=== PATIENT | male | born 1990 | race Caucasian/White ===

== ENCOUNTER 2017-09-15 05:59 | Emergency (ER) | payer OTHER, MEDICAID, SELFPAY ==
[2017-09-15 06:01] VITALS: BP 128/85; PULSE 91; RESP 16; TEMP 36.4; O2SAT 100; BMI 28.4
--- NOTE | 2017-09-15 06:34 | CT_ITS ---
STUDY: CT ABDOMEN AND PELVIS WITHOUT CONTRAST REASON FOR EXAM: Male, 27 years old. Acute onset of right flank pain. RADIATION DOSAGE (If Supplied By Facility): CTDIvol = ( 13.55 ) mGy, DLP = ( 647.72 ) mGycm TECHNIQUE: Transaxial images were obtained from the dome of the diaphragm to the symphysis pubis without oral contrast, and without intravenous contrast. Sagittal and coronal images were reconstructed. Individualized dose optimization techniques were used for this CT. COMPARISON: None. FINDINGS: The visualized lung bases are unremarkable. The visualized portions of the heart are within normal limits. Normal liver. Normal gallbladder and extrahepatic biliary system. Normal spleen. Normal pancreas. Normal bilateral adrenal glands. Very minimal dilatation right renal collecting system. No perinephric stranding. The ureter is not dilated. No evidence of obstructing stone. Normal left kidney. Normal visualized stomach. Normal small intestine. Sigmoid colon not well distended limiting evaluation. The appendix is small, visualized axial image 129 and appears normal. Normal abdominal aorta. Normal inferior vena cava. Normal retroperitoneum. No intra-abdominal free air. Normal urinary bladder. Normal visualized prostate gland. Normal abdominal wall. Normal osseous structures. CT/Abdomen/Pelvis without Cont IMPRESSION: No evidence of bowel obstruction. Minimal dilatation right renal collecting system without evidence of obstructing stone. If symptoms persist consider urology consultation. Limited evaluation of the sigmoid colon due to lack of distention. If there is a high clinical suspicion of colitis, and further imaging is warranted, consider delayed images after administration of oral contrast Electronically Signed: Yair Hung MD at 7:41 EDT , Service support ,
--- NOTE | 2017-09-15 06:36 | ED.VISSUMM ---
- ER Visit Summary Date of Service: 09/15/17 Chief Complaint: [] Right-sided flank pain History of Present Illness: The patient is a 27 M who stated that he woke up 3 and half hours ago with right-sided flank pain. Is continuous waxes and wanes stabbing pain. Multiple episodes of emesis. No urinary symptoms. He tried a muscle relaxant but does not think even It down. No history of kidney stones. He does have a history of back spasms but this feels different. Physical Examination: Vital signs reviewed General: Well-nourished well-developed he does appear in pain Head: Normocephalic atraumatic Eyes: Pupils equal round and reactive to light extraocular movements intact ENT: TMs clear no hemotympanum no trauma Neck: Nontender full range of motion Cardiovascular: Regular rate rhythm no murmurs normal S1-S2 Respiratory: No distress clear to auscultation bilaterally chest nontender Abdomen: Soft nontender nondistended normal bowel sounds no masses Back: Nontender no CVA tenderness Extremities: Nontender active range of motion ?4 extremities no trauma Skin: Normal color no trauma Neuro alert oriented cranial nerves II through XII intact normal strength sensation reflexes Test Results: [] Emergency Department Course and Treatment: [] Patient given IV fluids morphine Zofran Toradol. Lab work and CT abdomen pelvis obtained. CBC normal except white count 13.0. Chemistries normal except glucose 116. Urinalysis shows no infection. CT. At this time I feel this is musculoskeletal back pain Treatment Plan: [] Disposition: [] Impression: [] R Sided flank pain Back pain This note was generated with [employer] dictation software. It may contain incorrect words, spelling, and punctuation that were not noted in review of the chart prior to signing ED Disposition - Plan for ED Patient: Disposition: Home or Assisted Living Chief Complaint: Flank Pain Instructions: ED Spasm Back No Trauma Prescriptions: Ibuprofen 800 mg PO TID #30 tab Referrals: Joseph Campos MD [Primary Care Provider] -
[2017-09-15 06:48] LABS: Anion Gap 10 (5-15); BUN 18 mg/dL (7-18); BUN/Creat Ratio 15.7 RATIO (10-20); Calcium,Total 9.2 mg/dL (8.5-10.1); Chloride 105 mmol/L (98-107); Creatinine, Serum 1.15 mg/dL (0.70-1.30); EST Glomerular Filtration Rate 80 mL/min (>60); Est Glom Filt Rate - Afr Amer 97 mL/min (>60); Estimated Creatinine Clearance 98.74 ml/min; Glucose 116 mg/dL (74-106); Potassium 3.6 mmol/L (3.5-5.1); Sodium Level 143 mmol/L (136-145)
[2017-09-15] MEDS: Ondansetron 4 MG/2 ML Vial IV (06:48)
[2017-09-15] MEDS: 0.9% Normal Saline 1,000 ML 1000 ML IV (06:48)
[2017-09-15] MEDS: Ketorolac 30 MG/ML Syringe IV (06:49)
[2017-09-15] MEDS: morphine 8 MG/ML Syringe IV (06:51)
[2017-09-15 06:59] LABS: Absolute Lymphocyte Count 2.64 X10^3/ul (0.83-4.51); Absolute Neutrophil Count 9.5 X10^3/uL (2.0-7.7); Basophil# 0.03 X10^3/uL; Basophil% 0.2 % (0-1); Hematocrit 44.2 % (40-54); Hemoglobin 14.9 g/dl (13.0-16.5); Lymphocyte # 2.64 X10^3/ul (4.0); Lymphocyte % 20.4 % (19-41); Mean Corp Hgb Conc 33.7 g/gl (32-36); Mean Corpuscular Hgb 28.7 pg (27.0-32.0); Mean Platelet Vol. 8.9 fl (6.2-12.0); Monocyte# 0.77 X10^3/uL; Monocyte% 5.9 % (0-10); Neutrophil # 9.49 X10^3/uL (2.7-7.7); Neutrophil % 73.3 % (47-70); Platelet Count 326 K/mm3 (150-450); RBC Distribution Width CV 12.7 % (11.6-14.6); RBC Distribution Width SD 39.4 fl (35.1-43.9)
[2017-09-15 07:03] LABS: POSITIVE COUNT NO; POSITIVE DIFFERENTIAL NO; POSITIVE MORPHOLOGY NO
[2017-09-15 07:07] LABS: Squamous Epithelial Cells - UA 0 SEEN /hpf (0-5)
[2017-09-15 07:11] LABS: Color, Urine Yellow (Yellow); Glucose, Dipstick Normal (Normal); Ketone-Dipstick Negative (Negative); Leukocyte Esterase-Dipstick 25 /ul (Negative); Nitrite-Dipstick Negative (Negative); Occult Blood-Urine 250 /ul (Negative); Protein-Dipstick 30 mg/dl (Negative); Urine Bilirubin Dipstick Negative (Negative); Urine Clarity Sl. Cloudy (Clear); Urine Urobilinogen Normal (Normal)
[2017-09-15 07:19] LABS: Bacteria 1+ /hpf (None Seen); Mucous, Urine 1+ /hpf (<or=2+); Red Blood Cells-Urine 25-50 SEEN /hpf (0-5); White Blood Cells 0-5 SEEN /hpf (0-5)
--- NOTE | 2017-09-15 07:42 | ED.DEP ---
ED Disposition - Plan for ED Patient: Disposition: Home or Assisted Living Chief Complaint: Flank Pain Instructions: ED Spasm Back No Trauma Prescriptions: Ibuprofen 800 mg PO TID #30 tab Referrals: Joseph Campos MD [Primary Care Provider] -
== END 2017-09-15 08:24 | disposition home or self-care (01) ==
PROVIDERS: Emergency Provider Emergency Medicine; Family Provider Family Medicine; PCP Family Medicine
DX: R10.9 Unspecified abdominal pain (principal); M54.9 Dorsalgia, unspecified; K21.9 Gastro-esophageal reflux disease without esophagitis; F32.9 Major depressive disorder, single episode, unspecified; F41.9 Anxiety disorder, unspecified
CPT/HCPCS: 74176; 80048; 81001; 85025; 96361; 96374; 96375; 99282; J7030; J2405

== ENCOUNTER → 2017-10-08 15:16 | Outpatient (CLI) | payer OTHER, MEDICAID, SELFPAY ==
[2017-10-08 17:31] LABS: Absolute Lymphocyte Count 2.65 X10^3/ul (0.83-4.51); Absolute Neutrophil Count 5.4 X10^3/uL (2.0-7.7); Basophil# 0.02 X10^3/uL; Basophil% 0.2 % (0-1); Eosinophil# 0.01 X10^3/uL; Eosinophils% 0.1 % (0-5); Hematocrit 45.8 % (40-54); Hemoglobin 15.6 g/dl (13.0-16.5); Lymphocyte # 2.65 X10^3/ul (4.0); Lymphocyte % 30.4 % (19-41); Mean Corp Hgb Conc 34.1 g/gl (32-36); Mean Corpuscular Hgb 29.3 pg (27.0-32.0); Mean Corpuscular Volume 86.1 fL (80-94); Mean Platelet Vol. 9.1 fl (6.2-12.0); Monocyte# 0.62 X10^3/uL; Monocyte% 7.1 % (0-10); Neutrophil # 5.38 X10^3/uL (2.7-7.7); Neutrophil % 61.9 % (47-70); Platelet Count 355 K/mm3 (150-450); RBC Distribution Width CV 12.9 % (11.6-14.6); Red Blood Count 5.32 M/mm3 (4.6-6.2); White Blood Count 8.7 K/mm3 (4.4-11.0)
[2017-10-08 17:33] LABS: POSITIVE COUNT NO; POSITIVE DIFFERENTIAL NO; POSITIVE MORPHOLOGY NO
[2017-10-08 18:02] LABS: ALB/GLOB Ratio 1.1 RATIO (0.9-2.4); AST(SGOT) 32 U/L (15-37); Alanine Aminotransfer ALT/SGPT 59 U/L (16-61); Albumin, Serum 4.1 g/dL (3.2-5.0); Alkaline Phosphatase 107 U/L (45-117); Anion Gap 7 (5-15); BUN 13 mg/dL (7-18); BUN/Creat Ratio 13.9 RATIO (10-20); Calcium,Total 8.9 mg/dL (8.5-10.1); Chloride 103 mmol/L (98-107); Creatinine, Serum 0.94 mg/dL (0.70-1.30); EST Glomerular Filtration Rate 102 mL/min (>60); Est Glom Filt Rate - Afr Amer 123 mL/min (>60); Globulin 3.7 g/dL (2.2-4.2); Glucose 80 mg/dL (74-106); Potassium 3.7 mmol/L (3.5-5.1); Protein, Total 7.8 g/dL (6.4-8.2); Sodium Level 141 mmol/L (136-145); Thyroid Stim Hormone (TSH) 3.73 uIU/mL (0.358-3.74)
== END ==
PROVIDERS: Family Provider Family Medicine; PCP Family Medicine; Visit Provider Family Medicine
DX: R03.0 Elevated blood-pressure reading, without diagnosis of hypertension (principal); F41.9 Anxiety disorder, unspecified
CPT/HCPCS: 36415; 80053; 84443; 85025

== ENCOUNTER 2017-10-09 07:32 | Emergency (ER) | payer OTHER, MEDICAID, SELFPAY ==
[2017-10-09 07:33] VITALS: BP 138/86; PULSE 99; RESP 16; TEMP 36.9; O2SAT 98; BMI 29.7
--- NOTE | 2017-10-09 08:05 | RAD_ITS ---
STUDY: X-RAY - LEFT FOOT CLINICAL: Male, 27 years old. Foot injury. TECHNIQUE: 3 view(s) of the foot. COMPARISON: None. FINDINGS: Normal talus, calcaneus, and tarsal bones. Normal visualized subtalar, talonavicular, calcaneocuboid, tarsal and tarsometatarsal articulations. Normal metatarsi. Normal metatarsophalangeal joint of the great toe. Normal tibial and fibular sesamoid bones. Normal interphalangeal joint of the great toe. Normal phalanges of the great toe. Normal second through fifth metatarsophalangeal joints. Normal interphalangeal joints and phalanges of the lesser toes. The soft tissue structures are unremarkable. There is no demonstrated fracture. RAD/Foot min 3 Views IMPRESSION: Normal x-ray examination of the foot. Electronically Signed: Brendan Dhaliwal MD at 8:31 EDT , Service support ,
--- NOTE | 2017-10-09 08:40 | ED.VISSUMM ---
- ER Visit Summary Date of Service: 10/09/17 Chief Complaint: Left foot pain History of Present Illness: The patient is a 27 M who presents with left foot pain. He was walking on a wet floor in [facility] when he slipped and hyperflexed his left great toe underneath his foot. Since that time he has had pain in the foot near the base of the left first toe. He is able to bear weight but it is painful. He denies paresthesias weakness loss of function. There were no other injuries. Physical Examination: Afebrile vitals are stable Moist mucous membranes Heart regular rate and rhythm Lungs are clear Patient does have some soft tissue swelling and bruising near the base of the left great toe but he does have active full range of motion although this is painful with range of motion of the left great toe he does have brisk capillary refill and normal sensation light touch Test Results: Foot x-ray is negative no fracture Emergency Department Course and Treatment: Patient was given a postoperative shoe and advised on rest ice and elevation. He was given a prescription for naproxen. He was advised to follow-up as needed as an outpatient. He understands to return for new or worsening symptoms and was discharged home. Treatment Plan: [] Disposition: Discharge Impression: Acute left foot sprain This note was generated with [employer] dictation software. It may contain incorrect words, spelling, and punctuation that were not noted in review of the chart prior to signing ED Disposition - Plan for ED Patient: Chief Complaint: Lower Extremity Injury Referrals: Joseph Rosario MD [Primary Care Provider] -
--- NOTE | 2017-10-09 08:42 | ED.DEP ---
ED Disposition - Plan for ED Patient: Chief Complaint: Lower Extremity Injury Instructions: ED Sprain Foot Prescriptions: Naproxen [Naprosyn] 500 mg PO BID #20 tab Referrals: Joseph Rosario MD [Primary Care Provider] -
[2017-10-09 08:46] VITALS: RESP 16
== END 2017-10-09 08:47 | disposition home or self-care (01) ==
PROVIDERS: Emergency Provider Emergency Medicine; Family Provider Family Medicine; PCP Family Medicine
DX: S93.602A Unspecified sprain of left foot, initial encounter (principal); W01.0XXA Fall on same level from slipping, tripping and stumbling without subsequent striking against object, initial encounter; Y93.01 Activity, walking, marching and hiking; Y92.9 Unspecified place or not applicable; Y99.9 Unspecified external cause status; K21.9 Gastro-esophageal reflux disease without esophagitis; F32.9 Major depressive disorder, single episode, unspecified; F41.9 Anxiety disorder, unspecified
CPT/HCPCS: 73630; 99283

== ENCOUNTER 2017-11-26 05:52 | Day surgery (SDC) | payer OTHER, MEDICAID, SELFPAY ==
[2017-11-26 06:05] VITALS: BP 123/67; PULSE 69; RESP 16; TEMP 36.4; O2SAT 100; BMI 30.9
--- NOTE | 2017-11-26 07:17 | PCM.OPRPT ---
Problem List (1) Gastro-esophageal reflux disease without esophagitis Status: Acute Report of Operation Date of Procedure: 11/26/17 Pre-Operative Diagnosis: K 21.9 gastroesophageal reflux disease without esophagitis Post-Operative Diagnosis: Same Surgery/Procedure Performed:: 47716 esophagogastroduodenoscopy with biopsy Type of Anesthesia:: MAC Description of Procedure: Patient was brought into the endoscopy suite. Placed in the supine position. Back of his throat was sprayed with Cetacaine spray. Bite-block was placed. He was placed in the left lateral decubitus position. Graded anesthesia was given Olympus scope was inserted in the back of the oropharynx and directed down through the esophagus into the stomach and into the duodenum without difficulty operative findings: 1. Duodenum: Normal appearance no mass lesions. 2. Stomach: Some linear gastritis was identified in the prepyloric area the pylorus itself was patent and no signs of mass lesions and no signs of ulcerations. Retroflexion did not show any signs of a hiatal hernia. No polyps were identified in the stomach. 3. Esophagus: Normal appearance no mass lesions no esophagitis Z line looked normal and was widely patent the mucosa was all normal in appearance. Patient's on a proton pump inhibitor I would recommend him getting another esophagogastroduodenoscopy between 3 and 5 years. - Admit VTE Documentation VTE Present on Admission: No VTE Mechan Device Prophylaxis: None VTE Pharm Prophylaxis ordered?: No Reason prophylaxis not ordered:: Treatment Not Indicated
[2017-11-26 07:23] VITALS: BP 123/67; BP 97/64; PULSE 71; RESP 18; TEMP 36.2; O2SAT 99
[2017-11-26 07:25] VITALS: BP 105/62; BP 123/67; PULSE 70; RESP 18; O2SAT 99
[2017-11-26 07:30] VITALS: BP 108/70; BP 123/67; PULSE 73; RESP 18; O2SAT 99
[2017-11-26 07:35] VITALS: BP 104/74; BP 123/67; PULSE 70; RESP 18; TEMP 36.3; O2SAT 100
[2017-11-26 07:45] VITALS: BP 123/67
== END 2017-11-26 07:46 | disposition home or self-care (01) ==
LOC: EN 05:53 → AC 05:53
PROVIDERS: Family Provider Family Medicine; PCP Family Medicine; Visit Provider Surgery
PROC: 0DJ08ZZ Inspection of Upper Intestinal Tract, Via Natural or Artificial Opening Endoscopic (ICD-10-PCS; CPT 43235; principal; 2017-11-26 06:55)
DX: K21.9 Gastro-esophageal reflux disease without esophagitis (principal); F43.10 Post-traumatic stress disorder, unspecified; F32.9 Major depressive disorder, single episode, unspecified; F41.9 Anxiety disorder, unspecified; Z87.891 Personal history of nicotine dependence
CPT/HCPCS: 43239; J7120

== ENCOUNTER → 2019-10-08 15:10 | Outpatient (CLI) | payer OTHER, MEDICAID, SELFPAY ==
[2018-06-11 17:44] VITALS: BMI 30.9
[2019-10-08 15:17] LABS: Bacteria 0 SEEN /hpf (None Seen); Mucous, Urine 0 SEEN /hpf (<or=2+); Red Blood Cells-Urine 0 SEEN /hpf (0-5); Squamous Epithelial Cells - UA 0 SEEN /hpf (0-5); White Blood Cells 0 SEEN /hpf (0-5)
[2019-10-08 15:40] LABS: Color, Urine Yellow (Yellow); Glucose, Dipstick Normal (Normal); Ketone-Dipstick Negative (Negative); Leukocyte Esterase-Dipstick Negative /ul (Negative); Nitrite-Dipstick Negative (Negative); Occult Blood-Urine Negative /ul (Negative); Protein-Dipstick Negative (Negative); Specific Gravity, Urine 1.005 (1.002-1.030); Urine Bilirubin Dipstick Negative (Negative); Urine Clarity Sl. Cloudy (Clear); Urine Urobilinogen Normal (Normal)
== END ==
PROVIDERS: PCP Family Medicine; Referring Provider Family Medicine; Visit Provider Family Medicine
DX: R31.9 Hematuria, unspecified (principal)
CPT/HCPCS: 81001; 87086

== ENCOUNTER 2020-02-19 09:57 | Emergency (ER) | payer OTHER, MEDICAID, SELFPAY ==
[2018-06-11 17:44] VITALS: BMI 30.9
[2020-02-19 09:58] VITALS: BP 134/82; PULSE 89; RESP 15; TEMP 36.2; O2SAT 100; BMI 29.5
--- NOTE | 2020-02-19 10:10 | ED.VIS.URI ---
History of Present Illness Informant: Patient Onset: Yesterday Context: Gradual Onset Timing: Continuous Quality: Aching Location: Throat Current Severity: Moderate Maximum Severity: Moderate Worsened by: Swallowing, Eating Solids, Drinking Liquids Relieved by: - - Nothing but no medicines taken Associated Symptoms: Nasal Congestion, Productive Cough. Negative for: Headache, Sinus Pressure, Myalgias, Nausea, Vomiting, Diarrhea, Shortness of Breath, Chest Pain, Nonproductive cough, Hemoptysis Narrative: 29-year-old male who denies any significant past medical history but is a daily smoker presents to the emergency department with cough and sore throat. He has a productive cough with sputum since yesterday. 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 Patient has had close contact with this person all week. Patient states he has not yet had a test during the pandemic. He has not had a fever. No vomiting or diarrhea. No chest pain or shortness of breath. No hemoptysis. No leg pain or swelling. No recent travel or surgery. No history of DVT or PE. No abdominal pain. He has been eating and drinking normally. Has been urinating normally. He denies any other review of systems at this time. Prior similar symptoms: No Recent Illness/Hospitalization: No <Greg Hernandez - Last Filed: 02/19/20 10:45> <Roberto Villarreal - Last Filed: 02/19/20 13:50> Chief Complaint: Cough Past Medical History Prior records reviewed: Yes Past Medical History: None Surgical History: no surgical history Lives: With Family Smoking Status: Current every day smoker Alcohol: Occasional Drugs: None <Greg Hernandez - Last Filed: 02/19/20 10:45> <Roberto Villarreal - Last Filed: 02/19/20 13:50> - Allergies and Home Meds Allergies/Adverse Reactions: Allergies amoxicillin Allergy (Mild, Verified 02/19/20 10:01) rash Penicillins Allergy (Mild, Verified 02/19/20 10:01) rash Primary Care Physician: Joseph Rosario MD [Primary Care Provider] - Review of Systems All systems negative except as indicated General: Denies: Chills, Fever, Malaise, Subjective, Sweats Eyes: Denies: Visual changes - bilaterally, Diplopia ENT: Reports: Sore throat. Denies: Bilateral ear pain, Rhinorrhea Cardiovascular: Denies: Chest pain, Palpitations Respiratory: Reports: Cough, Sputum. Denies: Dyspnea, Dyspnea on exertion, Orthopnea, Paroxysmal nocturnal dyspnea Gastrointestinal: Denies: Abdominal pain, Nausea, Vomiting, Diarrhea, Constipation, Melena, Hematochezia Genitourinary: Denies: Dysuria, Hematuria, Frequency Musculoskeletal: Denies: Myalgias, Arthralgias, Neck pain, Back pain, Swelling, Extremity Pain Skin: Denies: Rash, Abscess, Abrasions, Wounds Neurological: Denies: Headache, Weakness, Parasthesia, Numbness <Greg Hernandez - Last Filed: 02/19/20 10:45> Physical Exam Vital Signs/Narrative: Vital Signs Temp Pulse Resp BP Pulse Ox 02/19/20 09:58 97.1 F L 89 15 134/82 H 100 Inital Vital Signs reviewed: Yes General: Well nourished, Well developed Head: Normocephalic, Atraumatic Eyes: Perrl, EOMI Ears: Normal external canal, TM's clear Nose: Normal Inspection, No Rhinorrhea Mouth/Throat: Normal Inspection, Airway Patent, Posterior Oropharyngeal Erythema. Negative for: Dry Mucous Membranes Tonsils: Right Tonsilar Erythema, Left Tonsilar Erythema. Negative for: Right Tonsilar Exudates, Left Tonsilar Exudates, Right Tonsilar Swelling, Left Tonsilar Swelling Neck: Supple, Nontender, No Lymphadenopathy, No Meningismus Cardiovascular: Regular rate, Regular rhythm, No murmurs Respiratory: No distress, CTA bilaterally, Chest nontender Abdomen: Soft, Nontender, Nondistended, Normal bowel sounds Back: Nontender, Normal Inspection Extremities: Nontender, No edema. Negative for: Tenderness, Edema, Calf Tenderness Skin: Normal color, No rash Neurological: Alert, Oriented x3, Cranial nerves II-XII grossly intact, Normal Strength, Normal Sensation, Normal Gait Psychological: Normal affect, Normal Mood <Greg Hernandez - Last Filed: 02/19/20 10:45> Vital Signs/Narrative: Vital Signs Temp Pulse Resp BP Pulse Ox 02/19/20 11:23 80 16 02/19/20 09:58 97.1 F L 89 15 134/82 H 100 <Roberto Villarreal - Last Filed: 02/19/20 13:50> Diagnostic/Tx/Re-eval Chest X-Ray - ED: 1 View, Read by ED Physician, Read by Radiologist, No Acute Disease - Medical Decision Making Patient presents with cough after recent exposure to Covid. His chest x-ray is unremarkable. Patient's vital signs are stable he has a normal pulse ox he is well-appearing. Covid test sent. He will be discharged with Tessalon Perles Naprosyn and an albuterol inhaler. He will quarantine until his results for Covid return. Supportive care and return precautions discussed he voiced understanding is agreeable with plan all questions answered <Greg Hernandez - Last Filed: 02/19/20 10:45> - Medical Decision Making Attending note: I staffed the patient with the physician assistant coach. The patient was exposed to COVID-19. He has a cough. Vital signs reviewed. Alert and oriented. No acute distress. Sitting, breathing, moving comfortably. Agree with the above. Upper respiratory infection Chest x-ray unremarkable. COVID-19 test sent. Patient is appropriate for outpatient follow-up. Return for any new or worsening issues. <Roberto Villarreal - Last Filed: 02/19/20 13:50> ED Disposition <Greg Hernandez - Last Filed: 02/19/20 10:45> <Roberto Villarreal - Last Filed: 02/19/20 13:50> - Plan for ED Patient: Disposition: Home or Assisted Living Diagnosis: Viral URI with cough, Counseled about COVID-19 virus infection Instructions: ED Upper Resp Infec No Abx Tx Prescriptions: Naproxen [Naprosyn] 500 mg PO BID #14 tab Transmission Status: Received by [id number] Benzonatate [Tessalon Perle] 200 mg PO TID PRN PRN #20 cap PRN Reason: Cough Transmission Status: Received by [id number] Albuterol Inhaler [Ventolin Hfa] 1 - 2 puff INHALATION Q4H PRN PRN #1 inhaler PRN Reason: Wheezing Transmission Status: Received by [facility] Referrals: Joseph Rosario MD [Primary Care Provider] -
[2020-02-19] MEDS: Ondansetron ODT 4 MG Tablet PO (10:13)
--- NOTE | 2020-02-19 10:16 | RAD_ITS ---
STUDY: X-RAY CHEST REASON FOR EXAM: Male, 29 years old. PT STATES HE WAS EXPOSED TO SOMEONE ON FRIDAY THAT HAD COVID. STATES HE IS and quot;GO[place] and quot;. TICKLE IN NOSE LAST NIGHT AND SINUS DRAINAGE TODAY. THINKS HE MIGHT HAVE CHEST TIGHTNESS AND SOB TODAY. TECHNIQUE: Single AP portable view of the chest. COMPARISON: None. FINDINGS: The lungs are clear and expanded. There is no demonstrated pleural abnormality. Normal size heart. Normal mediastinum and maribeth. Normal visualized pulmonary arteries. Normal visualized aortic arch and descending thoracic aorta. Normal visualized thoracic spine. Normal visualized ribs, clavicles, and shoulders. There is no demonstrated abnormality of the visualized soft tissue structures of the upper abdomen. RAD/Chest 1 View (Portable) IMPRESSION: Normal x-ray examination of the chest. Electronically Signed: Joel Bee DO at 10:30 EDT Tel , Service support ,
[2020-02-19 11:23] VITALS: PULSE 80; RESP 16
== END 2020-02-19 11:15 | disposition home or self-care (01) ==
LOC: ED 11:06
PROVIDERS: Emergency Provider Physician Assistant Medical; PCP Family Medicine
DX: J06.9 Acute upper respiratory infection, unspecified (principal); R05 Cough; F17.200 Nicotine dependence, unspecified, uncomplicated; Z88.0 Allergy status to penicillin; Z20.828 Contact with and (suspected) exposure to other viral communicable diseases
CPT/HCPCS: 71045; 87635; 99281; U0003